=== PATIENT | male | born 1950 | race Hispanic/Latino ===

== ENCOUNTER 2018-08-22 10:50 | Day surgery (SDC) | payer OTHER ==
[2018-08-15 11:39] VITALS: BP 146/75
[2018-08-15 12:03] LABS: BASOPHILS % (AUTO) 1.2 % (0.0-5.0); EOSINOPHILS % (AUTO) 10.6 % (0.0-8.0); HEMATOCRIT 43.7 % (42-54); LYMPHOCYTES % (AUTO) 36.3 % (21.0-51.0); MEAN CORPUSCULAR HEMOGLOBIN 31.5 pg (27.0-33.0); MEAN CORPUSCULAR HGB CONC 34.6 g/dL (32.0-36.0); MEAN CORPUSCULAR VOLUME 90.9 fL (79-99); MONOCYTES % (AUTO) 6.6 % (3.0-13.0); NEUTROPHILS % (AUTO) 45.3 % (40.0-77.0); NUCLEATED RED BLOOD CELLS 0.1 % (0.0-0.19); PLATELET COUNT (AUTO) 180 K/uL (130-400); RED BLOOD CELL COUNT(AUTO) 4.81 MIL/uL (4.50-6.20); WHITE BLOOD COUNT (AUTO) 7.9 K/uL (4.8-10.8)
[2018-08-15 12:15] LABS: CREATININE 1.1 mg/dL (0.5-1.5); POTASSIUM 4.2 mmol/L (3.5-5.1)
[~2018-08-22] VITALS: Ht 170.2 cm; Wt 81.0 kg
[2018-08-22] VITALS (13 sets, daily range): BP systolic 120–144; BP diastolic 68–94
[~2018-08-22 10:50] MED LIST: ASPI-555 PO; CHOL100040 PO; GLUC1CAP14 PO; LEVO75TA10 PO; LOSA1TAB37 PO; MULT-1203 PO; OMEG-148 PO; PRAV40TA3 PO
[2018-08-22] MEDS ORDERED: LACTATED RINGERS 1000ML 1,000 ML IV ONE (11:29)
[2018-08-22] MEDS ORDERED: CEFAZOLIN SODIUM 1 GM VIAL ONE (11:29)
[2018-08-22] MEDS ORDERED: DURAMORPH PF1 MG/ML 10ML AMP IV ONE (11:55)
[2018-08-22] MEDS ORDERED: CELESTONE SOLUSPAN 6 MG/ML 5ML VIAL ONE (11:55)
[2018-08-22] MEDS ORDERED: BUPIVACAINE/EPI/PF 0.25% 50 ML VIAL ONE (11:55)
[2018-08-22] MEDS ORDERED: DEXAMETHASONE SOD PHOSPHATE 10MG/ML 1ML VIAL ONE (12:27)
[2018-08-22] MEDS ORDERED: NEOSTIGMINE 5MG/5ML SYR IV ONE (12:27)
[2018-08-22] MEDS ORDERED: GLYCOPYRROLATE 1 MG/5 ML SYRINGE ONE (12:27)
[2018-08-22] MEDS ORDERED: MIDAZOLAM HCL 1 MG/ML 2ML VIAL ONE (12:27)
[2018-08-22] MEDS ORDERED: PROPOFOL 10 MG/ML 20ML VIAL IV ONE (12:27)
[2018-08-22] MEDS ORDERED: LIDOCAINE PF 2% 5ML ABBOJECT ONE (12:27)
[2018-08-22] MEDS ORDERED: ROCURONIUM 10MG/1ML SYR 10 MG/ML ML ONE (12:27)
[2018-08-22] MEDS ORDERED: ONDANSETRON HCL 4 MG/2 ML VIAL ONE (12:27)
[2018-08-22] MEDS ORDERED: FENTANYL CITRATE PF 50 MCG/1 ML 2ML VIAL ONE (12:28)
== END 2018-08-22 14:55 | disposition home or self-care (01) ==
LOC: DAH 10:50
PROVIDERS: ATTEND Orthopaedic Surgery
DX: M23.204 Derangement of unspecified medial meniscus due to old tear or injury, left knee (principal); Z79.899 Other long term (current) drug therapy; I10 Essential (primary) hypertension; Z87.891 Personal history of nicotine dependence; G47.30 Sleep apnea, unspecified
CPT/HCPCS: 29881; 36415; 80048; 85025; 93005; A4450; A4649 ×3; A4930; A6223; J0690; J0702; J1100; J2001; J2250; J2274; J2405; J2704; J2710; J3010; J3490 ×2; J7120 ×2

== ENCOUNTER → 2019-09-03 | Outpatient (CLI) | payer OTHER ==
[~2019-09-03] VITALS: Ht 167.6 cm; Wt 79.4 kg
[~2019-09-03] MED LIST changes: +REGADENOSON 0.4 MG/5 ML PF SYG IVP SCH
== END | disposition home or self-care (01) ==
LOC: SHCH 07:55
PROVIDERS: ATTEND Internal Medicine Cardiovascular Disease
DX: I20.9 Angina pectoris, unspecified (principal); R06.00 Dyspnea, unspecified
CPT/HCPCS: 78452; 93017; 96374; A9500 ×2; J2785

== ENCOUNTER → 2024-11-07 | Outpatient (CLI) | payer OTHER ==
[~2024-11-07] MED LIST changes: -ASPI-555 PO; +ASPI-556 PO; -REGADENOSON 0.4 MG/5 ML PF SYG IVP SCH
[2024-11-07 16:36] LABS: ALBUMIN 4.2 g/dL (3.5-5.0); BILIRUBIN,TOTAL 1.2 mg/dL (0.2-1.0); CREATININE 1.2 mg/dL (0.5-1.3); POTASSIUM 4.9 mmol/L (3.5-5.1); TOTAL PROTEIN, SERUM 7.3 g/dL (6.0-8.3)
== END | disposition home or self-care (01) ==
LOC: LAB 13:06
PROVIDERS: ATTEND Internal Medicine Cardiovascular Disease
DX: I10 Essential (primary) hypertension (principal)
CPT/HCPCS: 36415; 80053

== ENCOUNTER → 2024-11-12 | Outpatient (CLI) | payer OTHER ==
[~2024-11-12] MED LIST changes: +IOHEXOL 350 MG/ML 100ML INFUS..BTL IV ONE; +metoPROLOL tartRATE 1 MG/ML 5ML VIAL IV ONE
--- NOTE | 2024-11-12 14:50 | HMCIMG ---
CT CARDIAC ANGIO W/CONT. CCTA REASON: Atherosclerotic heart disease of [place] coronary artery without angina pect COMPARISON: None TECHNIQUE: Images are obtained through the heart in the axial plane before and during bolus IV contrast infusion, 100 cc Omnipaque 350. 2-D and 3-D multiplanar reconstruction images were then performed. The injection had to be repeated once due to motion artifact on the first sequence, total contrast volume was 200 cc. FINDINGS: This dictation is for the noncardiac findings only. Cardiac and coronary artery findings are reported separately. Visualized portions of the lungs are clear. There is normal-appearing pulmonary interstitium. There is no hilar or mediastinal lymphadenopathy. Chest wall structures appear unremarkable. IMPRESSION: 1. Unremarkable noncardiac portions of CT cardiac angiography.
--- NOTE | 2024-11-22 12:01 | CARDIOLOGY ---
RAD REPORT: [facility] CT ANGIO RADIOLOGY REPORT: CORONARY CT ANGIOGRAPHY DATE: Nov 22, 2024 QUALITY: Excellent CLINICAL HISTORY AND INDICATION: [ coronary artery bypass graft patency ] TECHNIQUE: After obtaining a preliminary analog circuit designer image, contrast imaging performed on an [employer] [id number] scanner. A dedicated, limited window, coronary imaging protocol was used, with single breath-hold, retrospective ECG gating, and automated arrhythmia rejection. 100 cc of low osmolar contrast agent: Omnipaque 350 was delivered via a 18-gauge IV catheter in the right antecubital fossa, using a power injector and followed by 60 cc of normal saline bolus as a chaser. Collimated images were reformatted at 0.5 mm intervals, and sent to an offline independent workstation for interpretation, using 3D anatomic reconstructions: Curved multiplanar reconstructions, maximum intensity projections, and multiplan ar imaging. No metoprolol was administered prior to scanning due to low baseline heart rate. 0.4 mg SL nitroglycerin was given. CORONARY ARTERY DESCRIPTIONS: The coronary arteries arise in normal position. Left main coronary artery: Normal caliber vessel that bifurcates into the LAD and LCx. 60% ostial left main stenosis. Left anterior descending coronary artery: Normal caliber vessel and gives rise to diagonal and septal branches. Severe proximal to distal LAD stenosis. Severe proximal D1 stenosis. Heavily calcified ostial D2, not able to quantify luminal stenosis. Left circumflex coronary artery: Normal caliber, nondominant and gives rise to a large OM branch. Heavily calcified proximal to mid LCx. Right coronary artery: Large, dominant vessel giving rise to the PL and PDA branches. There is mixed calcified and noncalcified plaque in the proximal RCA with 30-40% stenosis. There is mixed calcified and noncalcified plaque in the mid to distal RCA with 70-80% stenosis. CORONARY ARTERY BYPASS GRAFT DESCRIPTIONS: Patent IRVIN to LAD. Patent SVG to OM1. Occluded SVG to RCA. Occluded SVG to D1. Thoracic Aorta: Normal diameter. Recommend left heart catheterization for severe stenosis of the mid to distal RCA and occluded SVG to RCA. Felicia Morrison MD Cardiovascular Disease [facility] [address] FELICIA MORRISON MD Nov 22, 2024 12:01
== END | disposition home or self-care (01) ==
LOC: RAH 09:36
PROVIDERS: ATTEND Internal Medicine Cardiovascular Disease
DX: I25.10 Atherosclerotic heart disease of native coronary artery without angina pectoris (principal); Z95.1 Presence of aortocoronary bypass graft
CPT/HCPCS: 75574; J3490 ×2; Q9967

== ENCOUNTER → 2025-01-15 | Outpatient (CLI) | payer OTHER ==
[~2025-01-15] MED LIST changes: -IOHEXOL 350 MG/ML 100ML INFUS..BTL IV ONE; -metoPROLOL tartRATE 1 MG/ML 5ML VIAL IV ONE
[2025-01-15 16:56] LABS: CREATININE 1.1 mg/dL (0.5-1.3); POTASSIUM 4.5 mmol/L (3.5-5.1)
== END | disposition home or self-care (01) ==
LOC: LAB 13:26
PROVIDERS: ATTEND Internal Medicine Cardiovascular Disease
DX: I10 Essential (primary) hypertension (principal)
CPT/HCPCS: 36415; 80048